=== PATIENT | male | born 1980 | race African-American/Black ===

== ENCOUNTER 2022-04-19 04:37 | Emergency (ER) | payer MEDICAID ==
[~2022-04-19] VITALS: Ht 182.9 cm; Wt 74.0 kg
[2022-04-19] MEDS ORDERED: ACETAMINOPHEN 325MG TABLET PO ONE (08:15)
[2022-04-19] MEDS ORDERED: LIDOCAINE HCL 1% 20ML VIAL (Pyxis) INJ INFIL ONE (09:30)
[2022-04-19 11:00] VITALS: BP 119/85
[2022-04-19] MEDS ORDERED: HYDR-4001 MT (11:24)
[2022-04-19] MEDS ORDERED: HYDROCODONE/ACETAMINOPHEN 5/325MG TABLET PO ONE (11:30)
== END 2022-04-19 12:50 | disposition home or self-care (01) ==
LOC: ER 04:37
DX: S52.502A Unspecified fracture of the lower end of left radius, initial encounter for closed fracture (principal); X58.XXXA Exposure to other specified factors, initial encounter; Y93.89 Activity, other specified; Y92.89 Other specified places as the place of occurrence of the external cause; Y99.8 Other external cause status; Z98.890 Other specified postprocedural states
CPT/HCPCS: 29125; 73080; 73110; 99284; J3490; Z7610

== ENCOUNTER 2022-05-23 21:47 | Emergency (ER) | payer MEDICAID ==
[~2022-05-23] VITALS: Ht 177.8 cm; Wt 63.4 kg
[~2022-05-23 21:47] MED LIST: HYDR-4001 MT
[2022-05-23 23:57] LABS: HEMATOCRIT. 40.5 % (42.0-52.0); HEMOGLOBIN. 13.1 g/dL (14.0-18.0); MEAN CORPUSCULAR HEMOGLOBIN 28.9 pg (28.0-32.0); MEAN CORPUSCULAR VOLUME 89.4 fL (80.0-94.0); MEAN PLATELET VOLUME 9.6 fl (7.4-10.4); PLATELET 161 x1000/uL (130-400); RED BLOOD CELL COUNT 4.54 mill/uL (4.7-6.1); RED CELL DISTRIBUTION WIDTH 15.5 % (11.6-14.6)
[2022-05-24 00:35] LABS: CHLORIDE 107 mEq/L (98-107)
[2022-05-24] MEDS ORDERED: SODIUM CHLORIDE 0.9% 1,000 ML IV ONE (04:30)
[2022-05-24 05:43] LABS: PLATELET ESTIMATE NORMAL
[2022-05-24 06:30] VITALS: BP 118/83
== END 2022-05-24 07:13 | disposition home or self-care (01) ==
LOC: ER 21:55
DX: R19.7 Diarrhea, unspecified (principal)
CPT/HCPCS: 36415; 80053; 85025; 86850; 86900; 86901; 96360; 99283; J7030; Z7610